=== PATIENT | female | born 1985 | race Caucasian/White ===

== ENCOUNTER 2018-02-12 20:02 | Outpatient (CLI) | payer BC ==
[~2018-02-12] VITALS: Ht 172.7 cm; Wt 93.6 kg
[2018-02-12] MEDS ORDERED: PRENATAL1 TA7 PO (20:15)
[2018-02-12 20:30] VITALS: BP 130/81; PULSE 66; TEMP 98.9
== END 2018-02-12 21:16 | disposition home or self-care (01) ==
LOC: LDRO 20:02
DX: O42.92 Full-term premature rupture of membranes, unspecified as to length of time between rupture and onset of labor (principal); Z3A.37 37 weeks gestation of pregnancy

== ENCOUNTER 2018-02-17 00:41 | Outpatient (CLI) | payer BC ==
[~2018-02-17] VITALS: Ht 172.7 cm; Wt 93.2 kg
[~2018-02-17 00:41] MED LIST: PRENATAL1 TA7 PO
[2018-02-17 01:30] VITALS: BP 137/88; PULSE 61; TEMP 98
[2018-02-17 02:08] VITALS: BP 140/87; PULSE 62
[2018-02-17 03:10] VITALS: BP 135/70; PULSE 61
[2018-02-17 04:07] VITALS: BP 128/73; PULSE 74
== END 2018-02-17 04:20 | disposition home or self-care (01) ==
LOC: LDRO 00:41
DX: O62.9 Abnormality of forces of labor, unspecified (principal); Z3A.38 38 weeks gestation of pregnancy

== ENCOUNTER 2018-02-18 03:37 | Inpatient (IN) | payer BC ==
[2018-02-18] VITALS (47 sets, daily range): BP systolic 98–167; BP diastolic 56–123; PULSE 51–87; TEMP 97.5–98.9
[~2018-02-18] VITALS: Ht 172.7 cm; Wt 93.2 kg
[2018-02-18 04:36] LABS: BASO # 0.1 (0.0-0.2); BASO % 0.6 % (0.0-2.0); EOS # 0.1 (0.0-0.7); EOS % 0.7 % (0-4.0); GRAN # 11.5 (1.4-6.5); GRAN % 78.5 % (42.2-75.2); HEMATOCRIT 37.2 % (37.0-47.0); HEMOGLOBIN 12.8 g/dl (12.5-16.0); LYMPH # 1.9 (1.2-3.4); LYMPH % 13.1 % (20.0-51.0); MEAN CELL VOLUME 88 fl (80.0-100.0); MEAN CORPUSCULAR HEMOGLOBIN 30 pg (27.0-31.0); MEAN CORPUSCULAR HGB CONC 34 g/dl (33.0-37.0); MEAN PLATELET VOLUME 11.9 fl (7.4-10.4); MONO % 6.5 % (1.7-9.3); PLATELET COUNT 222 K/mm3 (130-400); RED BLOOD COUNT 4.23 M/mm3 (4.10-5.30); REDCELL DISTRIBUTION WIDTH-CV 12.4 % (11.5-14.5)
[2018-02-19 00:30] VITALS: BP 132/80; PULSE 88; TEMP 98.4
[2018-02-19 05:35] VITALS: BP 123/83; PULSE 62; TEMP 97.8
[2018-02-19 09:30] VITALS: BP 111/76; PULSE 82; TEMP 97.9
[2018-02-19 15:50] VITALS: BP 125/69; PULSE 60; TEMP 97.9
[2018-02-19 19:34] VITALS: BP 122/69; PULSE 61; TEMP 97.1
[2018-02-20] MEDS ORDERED: MOTRIN 800800 MG/TAB PO (07:51)
[2018-02-20] MEDS ORDERED: PERCOCET 325 MG1 TA2 PO (07:51)
[2018-02-20 08:30] VITALS: BP 123/72; PULSE 64; TEMP 98.4
== END 2018-02-20 12:25 | disposition home or self-care (01) | DRG 775 ==
LOC: LDRO 03:37 → LDR 04:00 → OB 17:50
PROVIDERS: Obstetrics & Gynecology
PROC: 10E0XZZ Delivery of Products of Conception, External Approach (ICD-10-PCS; principal; 2018-02-18)
PROC: 0KQM0ZZ Repair Perineum Muscle, Open Approach (ICD-10-PCS; 2018-02-18)
DX: O70.1 Second degree perineal laceration during delivery (principal); Z37.0 Single live birth; O36.0930 Maternal care for other rhesus isoimmunization, third trimester, not applicable or unspecified; Z3A.38 38 weeks gestation of pregnancy
CPT/HCPCS: J2590; J2791; J7120

== ENCOUNTER 2021-08-06 12:31 | Outpatient (CLI) | payer BC ==
[~2021-08-06] VITALS: Ht 172.7 cm; Wt 93.2 kg
[~2021-08-06 12:31] MED LIST changes: +MOTRIN 800800 MG/TAB PO; +PERCOCET 325 MG1 TA2 PO
--- NOTE | 2021-08-06 12:40 | NUR ---
1240-Patient to LR 4 from office after non reactive NST and decreased FM. Dr. Muse on unit. Notified of patients arrival to unit. 1243-Placed on EFM, VSS, Assessment complete. Updated on plan of care and provided water pitcher.
[2021-08-06 13:00] VITALS: BP 129/72; PULSE 73; TEMP 97.9
--- NOTE | 2021-08-06 13:26 | NUR ---
Allowed off of EFM at this time, as noted monitor strip reviewed by this medical technical writer and , reactive, Category I strip noted. Discharge orders provided.
--- NOTE | 2021-08-06 13:35 | NUR ---
Ambulatory off of unit, reports feeling movement now.
== END 2021-08-06 13:35 | disposition home or self-care (01) ==
LOC: LDRO 12:31 → LDR 12:40 → LDRO 13:35
DX: O36.8130 Decreased fetal movements, third trimester, not applicable or unspecified (principal); Z3A.38 38 weeks gestation of pregnancy
CPT/HCPCS: OP

== ENCOUNTER 2021-08-15 22:32 | Inpatient (IN) | payer BC ==
[~2021-08-15] VITALS: Ht 172.7 cm; Wt 93.2 kg
--- NOTE | 2021-08-15 22:40 | NUR ---
2240- PT PRESENTS TO LDR COMPLAINING OF LEAKING FLUID, TO ROOM LR4 PER WHEELCHAIR. CHANGED INTO GOWN. 2243- EFM X2 APPLIED. PT REPORTS LEAKING CLEAR FLUID AT 2145. STATES SHE HAS BEEN TIRSO SINCE 1800 TODAY AND IS NO MUCH MORE UNCOMFORTABLE. ALSO REPORTS SOME SPOTTING SINCE SROM. IS FEELING BABY MOVE. PLAN OF CARE FOR LABOR CHECK DISCUSSED AND QUESTIONS ANSWERED. 224- AMNIOTRACE POSITIVE FOR RUPTURE OF MEMBRANES. 225- SVE BY THIS NURSE , MIDPOSITION. PLAN OF CARE FOR ADMISSION DISCUSSED AND PT REQUESTS EPIDURAL. 225- DR HERNÁNDEZ CALLED CHARTED, ORDERS RECEIVED. 2320- IV START TO LEFT WRIST WITH 20G AFTER 4 ATTEMPTS. BLOOD DRAWN FOR LAB. LR INFUSING. 2327- PT POSITIONED SITTING ON EDGE OF BED. RENEE VARELA AT BEDSIDE FOR EPIDURAL PLACEMENT. DISCUSSED RISKS AND PROCEDURE, QUESTIONS ANSWERED. 2331- SINGLE SHOT FOR EPIDURAL. 2337- EPIDURAL PROCEDURE COMPLETE. PT TOLERATED WELL. PT POSITIONED IN LEFT TILT FOR COMFORT. PT REPORTS HER FEET ARE ALREADY WARM AND CONTRACTIONS SEEM SHORTER. 2345- NURSING ADMISSION HISTORY AND ASSESSMENTS COMPLETE. 2355- CONSENTS SIGNED. PT DENIES FURTHER NEEDS AT THIS TIME.
[2021-08-15 23:00] VITALS: BP 129/78; PULSE 67; TEMP 98.4
[2021-08-15 23:45] VITALS: BP 120/60; PULSE 67
[2021-08-15 23:59] LABS: BASO # 0.1 K/mm3 (0.0-0.2); BASO % 0.5 % (0.0-2.0); EOS # 0.1 K/mm3 (0.0-0.7); EOS % 1.1 % (0-4.0); GRAN # 8.5 K/mm3 (1.4-6.5); GRAN % 72.6 % (42.2-75.2); HEMOGLOBIN 12.4 g/dl (12.5-16.0); LYMPH # 2.1 K/mm3 (1.2-3.4); LYMPH % 18.1 % (20.0-51.0); MEAN CELL VOLUME 87 fl (80.0-100.0); MEAN CORPUSCULAR HEMOGLOBIN 29 pg (27.0-31.0); MEAN CORPUSCULAR HGB CONC 34 g/dl (33.0-37.0); MEAN PLATELET VOLUME 11.5 fl (7.4-10.4); MONO # 0.8 K/mm3 (0.1-0.6); MONO % 7.2 % (1.7-9.3); PLATELET COUNT 205 K/mm3 (130-400); RED BLOOD COUNT 4.24 M/mm3 (4.10-5.30)
[2021-08-16] VITALS (19 sets, daily range): BP systolic 114–141; BP diastolic 57–87; PULSE 61–93; TEMP 97.1–99.4
[2021-08-16 00:07] LABS: HEMATOCRIT 36.8 % (37.0-47.0)
--- NOTE | 2021-08-16 00:50 | NUR ---
0050- PT REPORTS FEELING COMFORTABLE AT THIS TIME. SANTOS CATHETER PLACED BY THIS NURSE WITHOUT DIFFICULTY. SVE BY THIS NURSE . PT INSTRUCTED TO CALL OUT WITH INCREASED PRESSURE OR URGE TO PUSH. 0115- PT CALLS OUT WITH INCREASED PRESSURE. SVE BY Anoop FERGUSON RN . 0125- DR HERNÁNDEZ CALLED FOR DELIVERY. STATES HE IS ON HIS WAY. 0135- SANTOS CATHETER REMOVED WITHOUT DIFFICULTY. PT IS FEELING PUSHY. ENCOURAGED TO BREATH THROUGH URGE. 0140- DR HERNÁNDEZ AT BEDSIDE. PT POSITIONED IN FOOTPLATES AND PUSHING DISCUSSED. 0143- PT BEGINS COACHED PUSHING WITH CONTRACTIONS. 0151- SPONTANEOUS DELIVERY OF VIABLE MALE, TO MOTHER'S ABDOMEN AND CARE OF NURSERY STAFF. 0202- MANUAL DELIVERY OF PLACENTA. EXAMINED BY DR HERNÁNDEZ. NO REPAIR NEEDED. 0205- PERICARE PROVIDED. ICEPACK TO PERINEUM. FEET DOWN FROM FOOTPLATES AND RECOVERY STARTED.
--- NOTE | 2021-08-16 04:20 | NUR ---
0420- IV SITE TO SALINE LOCK. EPIDURAL CATHETER REMOVED CHARTED. PT ASSISTED TO AMBULATE TO BATHROOM. ABLE TO VOID 200ML WITHOUT DIFFICULTY. PT PERFORMS PERICARE. CLEAN GOWN, PAD, AND PANTIES PROVIDED. PT IS DIZZY GETTING UP FROM TOILET, SO IS TRANSFERRED TO WHEELCHAIR. 0435- PT TRANSFERRED TO ROOM 207 PER WHEELCHAIR. BELONGINGS SENT WITH PT. PT ORIENTED TO ROOM AND CALL LIGHTS. PLAN OF CARE DISCUSSED AND QUESTIONS ANSWERED. PT DENIES FURTHER NEEDS AT THIS TIME.
[2021-08-16] MEDS ORDERED: IBU600 MG PO (11:05)
[2021-08-17 08:18] VITALS: BP 124/76; PULSE 82; TEMP 98.2
[2021-08-17 16:23] VITALS: BP 116/68; PULSE 72; TEMP 98.2
[2021-08-17 20:30] VITALS: BP 138/78; PULSE 61; TEMP 98.1
[2021-08-18 07:00] VITALS: BP 113/68; PULSE 55; TEMP 97.8
--- NOTE | 2021-08-18 09:39 | NUR ---
Initial visit; Parents thanked for offering God's blessings for the of their son. Fire Equipment Repairer Inspector thanked family for choosing [facility].
== END 2021-08-18 11:40 | disposition home or self-care (01) | DRG 807 ==
LOC: LDRO 22:32 → LDR 22:57 → OB 08-16 04:35
PROVIDERS: ADMIT Obstetrics & Gynecology
PROC: 10E0XZZ Delivery of Products of Conception, External Approach (ICD-10-PCS; principal; 2021-08-16)
DX: O77.0 Labor and delivery complicated by meconium in amniotic fluid (principal); Z37.0 Single live birth; O69.81X0 Labor and delivery complicated by cord around neck, without compression, not applicable or unspecified; O35.8XX0 Maternal care for other (suspected) fetal abnormality and damage, not applicable or unspecified; Z3A.39 39 weeks gestation of pregnancy
CPT/HCPCS: J2590; J2791; J7120

== ENCOUNTER → 2022-04-23 | Outpatient (CLI) | payer BC ==
[~2022-04-23] MED LIST changes: +IBU600 MG PO
== END ==
LOC: COL.RAD 12:42
DX: E05.90 Thyrotoxicosis, unspecified without thyrotoxic crisis or storm (principal)